=== PATIENT | female | born 1995 | race Caucasian/White ===

== ENCOUNTER 2017-09-09 01:31 | Emergency (ER) | payer OTHER ==
[~2017-09-09] VITALS: Wt 68.2 kg
[2017-09-09 01:34] VITALS: TEMP 97.9
[2017-09-09] MEDS ORDERED: KEPPRA1000 MG PO (01:49)
[2017-09-09] MEDS ORDERED: ZOLOFT 25MG25 MG PO (01:49)
[2017-09-09] MEDS ORDERED: ASPIRIN 81M81 MG/TA2 PO (01:50)
[2017-09-09 02:51] LABS: CALCIUM 8.6 mg/dL (8.4-10.2); CREATININE, serum 0.82 mg/dL (0.52-1.25); POTASSIUM 3.8 mmol/L (3.4-5.0)
[2017-09-09 04:54] VITALS: BP 100/71; PULSE 102
== END 2017-09-09 04:58 | disposition home or self-care (01) ==
LOC: COL.ER 01:31
PROVIDERS: Emergency Medicine
DX: G40.909 Epilepsy, unspecified, not intractable, without status epilepticus (principal)
CPT/HCPCS: J1885; J1953; J2060; J7030